=== PATIENT | female | born 1990 | race African-American/Black ===

== ENCOUNTER 2016-11-25 06:12 | Emergency (ER) | payer MEDICAID, OTHER ==
[~2016-11-25] VITALS: Ht 160 cm; Wt 59.4 kg
[2016-11-25 06:51] VITALS: BP 98/64
[2016-11-25 07:58] LABS: Basophils # (auto) 0.1 uL; Basophils % (auto) 0.7 % (0.0-2.0); CONDITION AutoValidated; Eosinophils # (auto) 0 uL; Eosinophils % (auto) 0.6 % (0.0-7.0); Hematocrit 33.4 % (36.0-46.0); Hemoglobin 11.6 g/dL (12.2-16.2); Lymphocytes # (auto) 1.4 uL; Lymphocytes % (auto) 18.9 % (10.0-50.0); Mean Corpuscular Hemoglobin 30.3 pg (28.0-32.0); Mean Corpuscular Hgb Conc. 34.7 g/dL (32.0-36.0); Mean Corpuscular Volume 87.3 fL (80.0-100.0); Mean Platelet Volume 7.7 fL (7.4-10.4); Monocytes # (auto) 0.4 uL; Neutrophils # (auto) 5.7 uL; Neutrophils % (auto) 74.8 % (37.0-80.0); Platelet Count (auto) 353 10^3/uL (140-450); Red Cell Distribution Width 13.2 % (11.6-16.0); White Blood Cell 7.6 10^3/uL (4.4-10.8)
[2016-11-25 08:22] LABS: BUN/Creatinine Ratio 16.7; Bilirubin, Total 0.2 mg/dL (0.2-1.0); Potassium 3.5 mmol/L (3.5-5.1); Total Protein 7.6 g/dL (6.4-8.2)
[2016-11-25 09:03] LABS: Urine Bilirubin Negative (Negative); Urine Blood Negative /uL (Negative); Urine Color Yellow (Yellow); Urine Glucose Normal (Normal); Urine Ketone Negative (Negative); Urine Mucus FEW (None Seen); Urine Nitrite Negative (Negative); Urine RBC 10 /hpf (0 - 4); Urine Squamous Epithelial Cell FEW /hpf (<5)
== END 2016-11-25 09:54 | disposition left against medical advice (07) ==
LOC: ER 06:30
DX: R10.9 Unspecified abdominal pain (principal); Z53.21 Procedure and treatment not carried out due to patient leaving prior to being seen by health care provider
CPT/HCPCS: 36415; 80053; 81001; 81025; 82150; 83690; 83735; 84702; 85025

== ENCOUNTER 2016-12-22 06:12 | Emergency (ER) | payer MEDICAID, OTHER ==
[~2016-12-22] VITALS: Ht 162.6 cm; Wt 59.0 kg
[2016-12-22 06:52] LABS: Basophils # (auto) 0 uL; Basophils % (auto) 0.5 % (0.0-2.0); CONDITION Y; Eosinophils # (auto) 0.1 uL; Eosinophils % (auto) 0.6 % (0.0-7.0); Hematocrit 31.2 % (36.0-46.0); Hemoglobin 11.1 g/dL (12.2-16.2); Lymphocytes % (auto) 24.8 % (10.0-50.0); Mean Corpuscular Hgb Conc. 35.6 g/dL (32.0-36.0); Mean Corpuscular Volume 87.1 fL (80.0-100.0); Mean Platelet Volume 7.6 fL (7.4-10.4); Monocytes # (auto) 0.4 uL; Monocytes % (auto) 5.1 % (0.0-12.0); Neutrophils # (auto) 5.6 uL; Platelet Count (auto) 346 10^3/uL (140-450); Red Cell Distribution Width 12.8 % (11.6-16.0); White Blood Cell 8.2 10^3/uL (4.4-10.8)
[2016-12-22] MEDS ORDERED: SODIUM CHLORIDE 0.9% 1,000 ML IV ONE ×2 (07:15)
[2016-12-22 07:40] LABS: Urine Bilirubin Negative (Negative); Urine Blood Negative /uL (Negative); Urine Color Yellow (Yellow); Urine Glucose Normal (Normal); Urine Ketone Negative (Negative); Urine Mucus FEW (None Seen); Urine Nitrite Negative (Negative); Urine RBC 42 /hpf (0 - 4); Urine Squamous Epithelial Cell FEW /hpf (<5)
[2016-12-22 07:50] LABS: INR 0.96 (0.9-1.15); Partial Thromboplastin Time 29.9 sec (22.64-33.71); Prothrombin Time 10.5 sec (9.37-12.3)
[2016-12-22 07:54] LABS: Albumin 3.7 g/dL (3.4-5.0); Amylase 64 U/L (25-115); Anion Gap 8 (5-15); BUN/Creatinine Ratio 11.6; Blood Urea Nitrogen 5 mg/dL (7-18); Calcium 8.7 mg/dL (8.5-10.1); Carbon Dioxide 24 mmol/L (21-32); Chloride 111 mmol/L (98-107); GFR African American 225 mL/min; GFR Non-African American 186 mL/min; Glucose 77 mg/dL (74-106); Potassium 4.1 mmol/L (3.5-5.1); Sodium 143 mmol/L (136-145)
[2016-12-22 08:01] LABS: Alkaline Phosphatase 58 U/L (45-117); Aspartate Aminotransferase 11 U/L (15-37); Bilirubin, Total 0.2 mg/dL (0.2-1.0); Total Protein 7.6 g/dL (6.4-8.2)
[2016-12-22] MEDS ORDERED: NITROFURANTOIN (MONO) 100 mg CAP PO ONE (08:15)
[2016-12-22 08:18] VITALS: BP 109/71
== END 2016-12-22 16:30 | disposition home or self-care (01) ==
LOC: ER 06:21
DX: O23.41 Unspecified infection of urinary tract in pregnancy, first trimester (principal); O99.311 Alcohol use complicating pregnancy, first trimester; Z3A.00 Weeks of gestation of pregnancy not specified
CPT/HCPCS: 36415; 80053; 81001; 81025; 82150; 83690; 84484; 84702; 85025; 85610; 85730; 96360; 96361

== ENCOUNTER 2016-12-25 14:48 | Emergency (ER) | payer OTHER ==
[~2016-12-25] VITALS: Ht 162.6 cm; Wt 58.1 kg
[2016-12-25 15:30] LABS: Basophils # (auto) 0 uL; Basophils % (auto) 0.4 % (0.0-2.0); CONDITION Y; Eosinophils # (auto) 0.1 uL; Eosinophils % (auto) 1.5 % (0.0-7.0); Hematocrit 30.2 % (36.0-46.0); Hemoglobin 10.5 g/dL (12.2-16.2); Lymphocytes # (auto) 1.7 uL; Lymphocytes % (auto) 20.5 % (10.0-50.0); Mean Corpuscular Hemoglobin 30.4 pg (28.0-32.0); Mean Corpuscular Hgb Conc. 34.8 g/dL (32.0-36.0); Mean Corpuscular Volume 87.2 fL (80.0-100.0); Mean Platelet Volume 8.1 fL (7.4-10.4); Monocytes # (auto) 0.4 uL; Monocytes % (auto) 5.5 % (0.0-12.0); Neutrophils # (auto) 5.9 uL; Neutrophils % (auto) 72.1 % (37.0-80.0); Platelet Count (auto) 315 10^3/uL (140-450); Red Cell Distribution Width 12.5 % (11.6-16.0); White Blood Cell 8.1 10^3/uL (4.4-10.8)
[2016-12-25 15:43] LABS: Albumin 3.3 g/dL (3.4-5.0); BUN/Creatinine Ratio 12.5; Calcium 8.3 mg/dL (8.5-10.1); Potassium 3.6 mmol/L (3.5-5.1)
[2016-12-25 15:46] LABS: Bilirubin, Total 0.2 mg/dL (0.2-1.0)
[2016-12-25 17:09] VITALS: BP 107/75
== END 2016-12-25 17:13 | disposition home or self-care (01) ==
LOC: ER 14:48
DX: O23.40 Unspecified infection of urinary tract in pregnancy, unspecified trimester (principal); O99.330 Smoking (tobacco) complicating pregnancy, unspecified trimester; Z3A.00 Weeks of gestation of pregnancy not specified
CPT/HCPCS: 36415; 76805; 80053; 84702; 85025

== ENCOUNTER 2024-04-28 12:04 | Emergency (ER) | payer MEDICAID, OTHER ==
[~2024-04-28] VITALS: Ht 160 cm; Wt 55.3 kg
--- NOTE | 2024-04-28 13:07 | ED.PDOC ---
History of Present Illness HPI Comments 33-year-old female presents with a chief complaint of left-sided numbness to her left little toe. Patient reports that she walked into a wall and hit the little toe on her left side. Patient states that at first it was not painful, but now has become numb and tingling. Patient has no deformities to the left foot. Patient is able to ambulate and apply weight to the leg. No other symptoms or modifying factors present at this time. Chief Complaint: Lower Extremity Time Seen by MD: 12:50 Primary Care Provider: NONE Reviewed Notes: Medications, Allergies Allergies: Coded Allergies: NO KNOWN ALLERGIES (Unverified , 02/04/14) Information Source: Patient Mode of Arrival: Ambulatory Severity: Moderate Timing: Days Duration: Since onset Prehospital treatment: None Past Medical History PAST MEDICAL HISTORY: Anxiety Surgical History: Denies all surgeries INTENSIVIST History: No Pertinent INTENSIVIST History Family History Family History: Unknown Social History Smoker: Cigarettes Alcohol: Occasionally Drugs: Denies Drug Use Lives In: Home Constitutional: denies: chills, diaphoresis, fatigue, fever, malaise, sweats, w eakness, others EENTM: denies: blurred vision, double vision, ear bleeding, ear discharge, ear drainage, ear pain, ear ringing, eye pain, eye redness, hearing loss, mouth pain, mouth swelling, nasal discharge, nose bleeding, nose congestion, nose pain, photophobia, tearing, throat pain, throat swelling, voice changes, others Respiratory: denies: cough, hemoptysis, orthopnea, SOB at rest, shortness of breath, SOB with excertion, stridor, wheezing, others Cardiovascular: denies: chest pain, dizzy spells, diaphoresis, Dyspnea on exertion, edema, irregular heart beat, left arm pain, lightheadedness, palpitations, PND, syncope, others Gastrointestinal: denies: abdomen distended, abdominal pain, blood streaked bowels, constipated, diarrhea, dysphagia, difficulty swallowing, hematemesis, melena, nausea, poor appetite, poor fluid intake, rectal bleeding, rectal pain, vomiting, others Genitourinary: denies: abnormal vagina bleeding, burning, dyspareunia, dysuria, flank pain, frequency, hematuria, incontinence, pain, , vagina di scharge, urgency, others Neurological: reports: left sided numbness (Little Toe), numbness (Left Little Toe ); denies: dizziness, fainting, headache, left sided weakness, paresthesia, pre-existing deficit, right sided numbness, right sided weakness, seizure, speech problems, tingling, tremors, weakness, others Musculoskeletal: denies: back pain, gout, joint pain, joint swelling, muscle pain, muscle stiffness, neck pain, others Integumetry: denies: bruises, change in color, change in hair/nails, dryness, laceration, lesions, lumps, rash, wounds, others Allergic/Immunocompromised: denies: Difficulty Healing, Frequent Infections, Hives, Itching, others Hematologic/Lymphatic: denies: anemia, blood clots, easy bleeding, easy bruising, swollen glands, others Endocrine: denies: excessive hunger, excessive sweating, excessive thirst, excessive urination, flushing, intolerance to cold, intolerance to heat, unexplained weight gain, unexplained weight loss, others Psychiatric: denies: anxiety, bipolar disorder, depression, hopeless, panic disorder, schizophrenia, sleepless, suicidal, others All Other Systems: Reviewed and Negative Physical Exam General Appearance: No Apparent Distress, Normal HEENT: Normal ENT Inspection, Pharynx Normal, TMs Normal Neck: Full Range of Motion, Non-Tender, Normal, Normal Inspection Respiratory: Chest Non-Tender, Lungs Clear, No Accessory Muscle Use, No Respiratory Distress, Normal Breath Sounds Cardiovascular: No Edema, No JVD, No Murmur, No Gallop, Normal Peripheral Pulses, Regular Rate/Rhythm Breast Exam: Deferred Gastrointestinal: No Organomegaly, Non Tender, No Pulsatile Mass, Normal Bowel Sounds, Soft Genitalia: Deferred Pelvic: Deferred Rectal: Deferred Extremities: No calf tenderness, Normal capillary refill, Normal inspection, Normal range of motion, Non-tender, No pedal edema Musculoskeletal : Apperance: Normal Neurologic: Alert, post office clerk II-XII nml as Tested, No Motor Deficits, Normal Affect, Normal Mood, No Sensory Deficits Cerebellar Function: Normal Reflexes: Normal Skin: Dry, Normal Color, Warm Lymphatic: No Adenopathy Was a procedure done? Was a procedure done?: No Differential Dx Considerations may include: Traumatic injury, electrolyte abnormality, nerve impingement X-Ray, Labs, Meds, VS Vital Signs Date Time Temp Pulse Resp B/P (MAP) Pulse Ox O2 Delivery O2 Flow Rate FiO2 11/19/24 12:26 98.5 87 14 116/79 (91) 99 Lab Test 04/28/24 12:58 Range/Units White Blood Count 4.5 4.4-10.8 10^3/uL Red Blood Count 4.34 4.0-5.20 10^6/uL Hemoglobin 11.9 L 12.2-16.2 g/dL Hematocrit 34.3 L 36.0-46.0 % Mean Corpuscular Volume 79.1 L 80.0-100.0 fL Mean Corpuscular Hemoglobin 27.4 L 28.0-32.0 pg Mean Corpuscular Hemoglobin Concent 34.6 32.0-36.0 g/dL Red Cell Distribution Width 18.2 H 11.8-14.3 % Platelet Count 275 140-450 10^3/uL Mean Platelet Volume 8.4 6.9-10.8 fL Neutrophils (%) (Auto) 45.8 37.0-80.0 % Lymphocytes (%) (Auto) 40.9 10.0-50.0 % Monocytes (%) (Auto) 10.8 0.0-12.0 % Eosinophils (%) (Auto) 0.8 0.0-7.0 % Basophils (%) (Auto) 1.7 0.0-2.0 % Neutrophils # (Auto) 2.1 1.6-8.6 10 ^3/uL Lymphocytes # (Auto) 1.8 0.4-5.4 10 ^3/uL Monocytes # (Auto) 0.5 0-1.3 10 ^3/uL Eosinophils # (Auto) 0 0-0.8 10 ^3/uL Basophils # (Auto) 0.1 0-0.2 10 ^3/uL Nucleated Red Blood Cells 0.1 % Sodium Level 140 136-145 mmol/L Potassium Level 3.7 3.5-5.1 mmol/L Chloride Level 105 98-107 mmol/L Carbon Dioxide Level 26 20-31 mmol/L Anion Gap 9 5-15 Blood Urea Nitrogen 10 9-23 mg/dL Creatinine 1.01 0.550-1.02 mg/dL Glomerular Filtration Rate Calc 74 >90 mL/min BUN/Creatinine Ratio 9.9 L 10.0-20.0 Serum Glucose 91 74-106 mg/dL Calcium Level 9.7 8.7-10.4 mg/dL Time of 1ST Reevaluation: 13:20 Reevaluation 1ST: Unchanged Patient Education/Counseling: Diagnosis, Treatment, Prognosis Family Education/Counseling: No Family Present Departure 1 Departure Time of Disposition: 14:43 (Patient's workup is benign. We will discharge patient with outpatient orthopedic follow up) Impression: Primary Impression: Numbness of toes Disposition: 01 HOME / SELF CARE / HOMELESS Condition: Stable Additional Instructions: Your workup today was benign. You can take Tylenol or Motrin as needed for pain. You should follow up with your regular doctor within 1 week. You were referred to orthopedics please call for an appointment this week. You should stay well rested and well hydrated. If your symptoms worsen or you have any other concerns please return to the emergency room. Discharged With: Self Critical Care Note Critical Care Time?: No Stability Stability form required: No I personally scribed for ANA MOJICA MD ([email or web address]) on 04/28/24 at 13:07. Electronically submitted by Sohail Jordan ([email or web address]). ANA MOJICA MD Apr 28, 2024 13:07
--- NOTE | 2024-04-28 13:21 | DVH ---
CLINICAL INDICATION: left 4th and 5th toe pain and tingling TECHNIQUE: XY L FOOT 3 VIEW XRAY Comparison: None FINDINGS/IMPRESSION: There is no evidence of acute fracture or dislocation. The visualized joint space is well maintained. The alignment is anatomical. There is no radiopaque foreign body.
[2024-04-28 13:40] LABS: Basophils # (auto) 0.1 10 ^3/uL (0-0.2); Basophils % (auto) 1.7 % (0.0-2.0); Eosinophils # (auto) 0 10 ^3/uL (0-0.8); Eosinophils % (auto) 0.8 % (0.0-7.0); Hematocrit 34.3 % (36.0-46.0); Hemoglobin 11.9 g/dL (12.2-16.2); Lymphocytes # (auto) 1.8 10 ^3/uL (0.4-5.4); Lymphocytes % (auto) 40.9 % (10.0-50.0); Mean Corpuscular Hemoglobin 27.4 pg (28.0-32.0); Mean Corpuscular Hgb Conc. 34.6 g/dL (32.0-36.0); Mean Corpuscular Volume 79.1 fL (80.0-100.0); Monocytes # (auto) 0.5 10 ^3/uL (0-1.3); Monocytes % (auto) 10.8 % (0.0-12.0); Neutrophils # (auto) 2.1 10 ^3/uL (1.6-8.6); Neutrophils % (auto) 45.8 % (37.0-80.0); Nucleated Red Blood Cells % 0.1 %; Platelet Count (auto) 275 10^3/uL (140-450); Red Blood Cells 4.34 10^6/uL (4.0-5.20); Red Cell Distribution Width 18.2 % (11.8-14.3); White Blood Cell 4.5 10^3/uL (4.4-10.8)
[2024-04-28 13:48] LABS: Chloride 105 mmol/L (98-107); Potassium 3.7 mmol/L (3.5-5.1); Sodium 140 mmol/L (136-145)
[2024-04-28 13:49] LABS: Anion Gap 9 (5-15); Calcium 9.7 mg/dL (8.7-10.4); Carbon Dioxide 26 mmol/L (20-31)
[2024-04-28 13:54] LABS: BUN/Creatinine Ratio 9.9 (10.0-20.0); Blood Urea Nitrogen 10 mg/dL (9-23); Glucose 91 mg/dL (74-106)
[2024-04-28 16:10] VITALS: BP 110/74; PULSE 74; RESP 15; TEMP 98.1; O2SAT 96
== END 2024-04-28 16:10 | disposition home or self-care (01) ==
LOC: ER 12:04
DX: R20.0 Anesthesia of skin (principal); R20.2 Paresthesia of skin; F41.9 Anxiety disorder, unspecified; F17.210 Nicotine dependence, cigarettes, uncomplicated
CPT/HCPCS: 36415; 73630; 80048; 85025